=== PATIENT | female | born 1935 | race Caucasian/White ===

== ENCOUNTER 2024-11-22 06:25 | Day surgery (SDC) | payer OTHER, SELFPAY ==
[2024-11-22] VITALS (13 sets, daily range): BP systolic 82–165; BP diastolic 45–117; BMI 25.4
[2024-11-22] MEDS: NSS 195 ML IV (07:25)
--- NOTE | 2024-11-22 09:06 | ITS.CL.CATH ---
[employer] - Catheterization
Cardiac Catheterization
Procedure Report:
CARDIAC CATHETERIZATION REPORT
Date of Procedure: 11/22/2024
Referring: Yvonne Cormier M.D.
Indication: Abnormal stress test, known coronary artery disease status post bypass.
PROCEDURE:
1. Right heart catheterization.
2. Coronary angiography.
3. Left heart catheterization.
4. Bypass angiography.
5. Mitral valve interrogation.
A total of 24 minutes of procedural/moderate sedation was utilized. An independent medical donation professional was present to assist with and help manage the patient's level of consciousness and physiologic status.
ACCESS:
1. 6 [place] left radial artery using a modified Seldinger technique.
2. 5 [place] left antecubital vein using a previously placed IV.
CATHETERS:
1. 5 [place] balloon wedge.
2. 5 [place] PATO.
3. 5 [place] JL 4.
4. 5 [place] JR4.
5. 5 [place] MP 2.
HEMODYNAMIC DATA
Weight (kg): 65.0
AO (s/d/x, mmHg): 153/58/94
LV (s/x, mmHg): 153/22
PCWP (a/v/x, mmHg): 33/47/27
PA (s/d/x, mmHg): 56/27/36
RV (s/x, mmHg): 56/12
RA (a/v/x, mmHg): 15/13/12
SVC SvO2 (%): 55.7
IVC SvO2 (%): Not obtained.
RA SvO2 (%): Not obtained.
RV SvO2 (%): Not obtained.
PA SvO2 (%): 58.8
SaO2 (%): 88.0
Hbg (g/dL): 9.2
CARON
CO (L/min): 3.94
CI (L/min/m2): 2.35
Thermodilution
CO (L/min): Not performed.
CI (L/min/m2): Not performed.
TPG (mmHg): 9
PVR (Laird Units): 2.28
SVR (dynes*seconds*cm^-5): 1665
AVO2 Diff (Volume %): 3.65
AV gradient (x, mmHg): None.
AV area (cm2): Normal.
MV gradient (x, mmHg): 3.88
MV area (cm2): 2.06
LEFT VENTRICULOGRAPHY: Not performed.
AORTOGRAPHY: Not performed.
CORONARY ANGIOGRAPHY
Dominance: Right.
Left Main: Short, bifurcating vessel. There is no coronary artery disease.
LAD: Normal size vessel giving rise to 1 significant diagonal. There are luminal irregularities in the proximal LAD. Significant tapering begins along the mid LAD and there is a 90% lesion in the distal portion of the mid LAD. The distal LAD
is supplied by patent GONZALEZ graft. The terminal LAD is diffusely diseased and not a target for intervention. The inferior and apical LAD is supplied by an epicardial collateral from the RV marginal.
Ramus: Congenitally absent.
Circumflex: Large size, nondominant vessel giving rise to a large obtuse marginal before terminating as a left posterolateral branch. There are luminal irregularities throughout.
RCA: Normal size, dominant vessel. The vessel is chronically totally occluded in its midportion after giving off a large RV marginal branch. There is an epicardial collateral from the RV marginal to the apical LAD. The RPDA is supplied by a
patent vein graft.
BYPASS GRAFT ANGIOGRAPHY
GONZALEZ to LAD: Normal size graft with end-to-side anastomosis to the distal LAD. There is no evidence of stenosis or graft degeneration. As noted, the terminal LAD is diffusely diseased and not a target for intervention. The inferior and apical
LAD is supplied by an epicardial collateral from the RV marginal.
SVG to RPDA: Normal size graft with end-to-side anastomosis to the RPDA. There is no evidence of stenosis or graft degeneration.
INTERVENTIONS
None.
Closure Device: Vascular band for the left radial artery, manual pressure for the left antecubital vein.
Radiation dose (mGy): 506.92
DAP (cm2.Gy): 36.2874
Fluoroscopy time (minutes): 7.7
CONCLUSIONS:
1. 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 The inferior
LAD is supplied by an epicardial collateral from the RV marginal. The terminal LAD is not amenable to intervention.
2. Moderate to severely elevated filling pressures (LVEDP = 22 mmHg, PCWP = 27 mmHg at 65.0 kg) with a large V wave consistent with noncompliant left atrium, possible mitral regurgitation.
3. Mild mitral valve stenosis (mean gradient 3.88 mmHg, MVA = 2.06 cm�).
4. Preserved cardiac function (cardiac index = 2.35 L/min/m�).
5. Mild, postcapillary pulmonary hypertension (mean PA = 36 mmHg, PCWP = 22 mmHg, cardiac output = 3.94 L/min, PVR = 2.28 Laird units), WHO group 2.
RECOMMENDATIONS:
1. Expectant management after cardiac catheterization via left radial/antecubital approach.
2. Limited weight bearing on the left wrist for one week.
3. The patient would likely benefit from gentle diuresis. Start furosemide 20 mg daily with BMP in 1 week.
4. Continue OMT/GDMT as hemodynamics will tolerate.
5. No role for revascularization at this time.
6. Stable for outpatient follow-up.
Copy to: Yvonne Cormier M.D., Renetta Julio D.O.
Richard Mendenhall DO, FACC, FACP
== END 2024-11-22 12:30 | disposition home or self-care (01) ==
LOC: CATH 06:25
PROVIDERS: ATTENDING PHYSICIAN Internal Medicine Cardiovascular Disease; FAMILY PHYSICIAN Family Medicine; OTHER PHYSICIAN Internal Medicine Cardiovascular Disease
DX: I25.10 Atherosclerotic heart disease of native coronary artery without angina pectoris (principal); R94.39 Abnormal result of other cardiovascular function study; Z95.1 Presence of aortocoronary bypass graft; I25.82 Chronic total occlusion of coronary artery; I27.29 Other secondary pulmonary hypertension; I05.0 Rheumatic mitral stenosis; I12.9 Hypertensive chronic kidney disease with stage 1 through stage 4 chronic kidney disease, or unspecified chronic kidney disease; E11.22 Type 2 diabetes mellitus with diabetic chronic kidney disease; N18.9 Chronic kidney disease, unspecified; E11.51 Type 2 diabetes mellitus with diabetic peripheral angiopathy without gangrene
CPT/HCPCS: 93461; 99152; 99153; C1894; Q9967